=== PATIENT | female | born 1995 | race Caucasian/White ===

== ENCOUNTER 2022-12-05 18:58 | Emergency (ER) | payer OTHER ==
[~2022-12-05] VITALS: Ht 167.6 cm; Wt 77.1 kg
[2022-12-05 19:23] VITALS: BP 123/71; TEMP 98.1; O2SAT 90
[2022-12-05] MEDS ORDERED: DOXY100C2 PO (20:21)
[2022-12-05] MEDS ORDERED: NALO4SPR BNOSTRILS (20:21)
[2022-12-05] MEDS ORDERED: AMOX-430 PO (20:21)
== END 2022-12-05 20:48 | disposition home or self-care (01) ==
LOC: ER 19:08
DX: J18.9 Pneumonia, unspecified organism (principal); R07.89 Other chest pain; T40.411A Poisoning by fentanyl or fentanyl analogs, accidental (unintentional), initial encounter; F17.200 Nicotine dependence, unspecified, uncomplicated; Z79.899 Other long term (current) drug therapy; Z60.2 Problems related to living alone; Y92.89 Other specified places as the place of occurrence of the external cause
CPT/HCPCS: 71045-TC